=== PATIENT | female | born 1975 | race Caucasian/White ===

== ENCOUNTER 2023-08-20 15:44 | Emergency (ER) | payer OTHER ==
[2023-08-20 15:53] VITALS: BMI 44.2
[2023-08-20] MEDS ORDERED: IBUPROFEN 600 MG TABLET (FP) PO ONE ×2 (16:57→17:15)
[2023-08-20 18:17] VITALS: BP 142/73; PULSE 116; RESP 19; TEMP 101.5
[2023-08-20] MEDS ORDERED: ACETAMINOPHEN 500 MG TABLET (FP) PO ONE (18:18)
[2023-08-20] MEDS ORDERED: ACETAMINOPHEN 500 MG TABLET (FP) ONE (18:19)
== END 2023-08-20 18:27 | disposition home or self-care (01) ==
LOC: JERFT 15:44
DX: R05.9 Cough, unspecified (principal); R51.9 Headache, unspecified; M79.10 Myalgia, unspecified site; E66.9 Obesity, unspecified; J10.1 Influenza due to other identified influenza virus with other respiratory manifestations; Z68.41 Body mass index [BMI] 40.0-44.9, adult; Z20.822 Contact with and (suspected) exposure to COVID-19
CPT/HCPCS: 0241U-QW; 71046-TC-FY; 99284-25

== ENCOUNTER 2024-03-06 21:36 | Emergency (ER) | payer SELFPAY ==
[2024-03-06 21:42] VITALS: PULSE 88; RESP 20; TEMP 97.8; BMI 27.4
[2024-03-06] MEDS ORDERED: LISINOPRIL 20 MG TABLET ONE (22:22)
[2024-03-06] MEDS ORDERED: VALSARTAN 80 MG TABLET ONE (22:22)
[2024-03-06] MEDS ORDERED: METOCLOPRAMIDE HCL INJECTION 10 MG/2 ML VIAL ONE (22:22)
[2024-03-06] MEDS ORDERED: ACETAMINOPHEN INJECTION 100 ML IVPB ONE (22:23)
[2024-03-06] MEDS: METOCLOPRAMIDE HCL INJECTION 10 MG/2 ML VIAL IVPUSH ONE (22:44)
[2024-03-06] MEDS: VALSARTAN 40 MG TABLET PO ONE (22:44)
[2024-03-06] MEDS: SODIUM CHLORIDE 0.9% 500 ML INFUS.BAG IV ONE ×3 (22:44→23:23)
[2024-03-06] MEDS: ACETAMINOPHEN 1000 MG/100 ML BAG IVPB ONE (22:44)
[2024-03-06] MEDS: LISINOPRIL 20 MG TABLET PO ONE (22:44)
[2024-03-06 22:50] LABS: BASO % 0.7 % (0-2.0); EOS % 0.5 % (0-4.5); HEMATOCRIT 40.5 % (32.4-45.2); HEMOGLOBIN 13.5 GM/dL (10.7-15.3); LYMPH % 14.1 % (8-40); MCH 28.8 pg (25.7-33.7); MCHC 33.3 g/dl (32.0-36.0); MEAN CELL VOLUME 86.4 fl (80-96); MEAN PLT VOLUME 8.9 fl (7.5-11.1); MONO % 4.1 % (3.8-10.2); NEUT % 80.6 % (42.8-82.8); PLATELET COUNT 367 10^3/uL (134-434); RBC 4.69 M/mm3 (3.60-5.2); RDW 13.7 % (11.6-15.6)
[2024-03-06 23:00] LABS: POTASSIUM 4.2 mmol/L (3.5-5.1)
[2024-03-06 23:02] LABS: BLOOD UREA NITROGEN 21.5 mg/dL (7-18); CALCIUM 9.8 mg/dL (8.5-10.1)
[2024-03-06 23:03] LABS: ALBUMIN 4.3 g/dl (3.4-5.0)
[2024-03-06 23:06] LABS: CREATININE 1.2 mg/dL (0.55-1.3)
[2024-03-06 23:07] LABS: BILIRUBIN,TOTAL 0.2 mg/dL (0.2-1); TOT PROT 7.9 g/dl (6.4-8.2)
[2024-03-07 00:11] VITALS: BP 182/92
== END 2024-03-07 02:34 | disposition home or self-care (01) ==
LOC: JER 21:36
PROC: 3E033NZ Introduction of Analgesics, Hypnotics, Sedatives into Peripheral Vein, Percutaneous Approach (ICD-10-PCS; principal; 2024-03-06)
PROC: 3E033GC Introduction of Other Therapeutic Substance into Peripheral Vein, Percutaneous Approach (ICD-10-PCS; 2024-03-06)
DX: R51.9 Headache, unspecified (principal); I10 Essential (primary) hypertension; R11.10 Vomiting, unspecified; Z20.822 Contact with and (suspected) exposure to COVID-19
CPT/HCPCS: 0241U-QW; 36415; 70450-TC; 70486-TC; 70496-TC; 71046-TC-FY; 80053; 84703; 85025; 93005; 93010; 99285-25; J0131; Q9967